=== PATIENT | male | born 1985 | race Caucasian/White ===

== ENCOUNTER 2020-02-18 18:46 | Emergency (ER) | payer OTHER, SELFPAY ==
--- NOTE | 2020-02-18 18:58 | ED.WOUNDLAC ---
HPI - Wound/Laceration General Chief Complaint: Wound/Laceration Stated Complaint: left pointer finger lac Time Seen by Provider: 02/18/20 19:00 Source: patient and RN notes reviewed Mode of arrival: ambulatory Limitations: no limitations History of Present Illness HPI narrative: This is a 34 years old male presents to the office for an evaluation of left index finger at around 3pm with razor blade. He could not get the blood to stops. TD is up to date. Related Data Home Medications Medication Instructions Recorded Confirmed budesonide-formoterol [Symbicort] INHALATION 02/18/20 Allergies Allergy/AdvReac Type Severity Reaction Status Date / Time No Known Allergies Allergy Verified 07/28/17 21:53 Review of Systems Review of Systems: Narrative: CONSTITUTIONAL: Denies feeling ill SKIN:Reports cut to his left index finger MUSCULOSKELETAL: Reports left index finger pain; but able to move. NEUROLOGIC: Denies numbness or tingling sensation PMFSH Past Medical History Medical History Asthma Coma Carbon monoxide poisioning Depression Eczema Nasal polyps Surgical History Surgical History H/O sinus surgery History of arthroscopy of right knee Family History Family History Grandparent Malignant neoplasm of prostate Family history of glaucoma Family history of alcoholism Family history of cardiovascular disease Family history of arthritis Family history of Alzheimer's disease Mother Family history of mental disorder Depression Family history of migraine headaches Family history of rheumatoid arthritis Family history of malignant neoplasm of breast in first degree relative Sibling Family history of mental disorder Depression Father Hypertension, Onset Age: 57 Family history of alcoholism Other Cerebrovascular accident Family history of color blindness Social History Social History Smoking status: Former smoker Alcohol intake: never Gender identity (if verbalized by the patient): Male Comments At time of signature, I agree with nursing past medical, surgical, social and family history. There is no relevant family history pertinent to the presenting complaint. Exam Narrative: Exam Narrative: GENERAL: This is a well-nourished, well-developed patient, in no apparent distress. NEURO: awake, alert, and oriented to person, place and time. There were no obvious focal neurologic abnormalities. Steady gait EXTREMITIES: left volar aspect of distal phalange noted gapping laceration in c-shape; bleeding is active; but controlled with pressure. Cap refill brisk. Radial pulse intact. Naeem Coma Scale Eye Opening: Spontaneous 4 Naeem Coma Scale Motor: Obeys Commands 6 [place] Coma Scale Verbal: Oriented 5 Course Vital Signs Vital signs: Vital Signs Temperature 98.1 F 02/18/20 19:05 Pulse Rate 73 02/18/20 19:05 Respiratory Rate 16 02/18/20 19:05 Blood Pressure 137/73 02/18/20 19:05 Pulse Oximetry 100 02/18/20 19:05 Temperature 98.1 F 02/18/20 19:05 Pulse Rate 73 02/18/20 19:05 Respiratory Rate 16 02/18/20 19:05 Blood Pressure 137/73 02/18/20 19:05 Pulse Oximetry 100 02/18/20 19:05 Procedures Laceration Laceration 1: Date: 02/18/20 Time: 19:08 Site: upper extremity Side (If applicable): left Size (cm): 2 Description: linear and flap Depth: simple, single layer Local Anesthetic: lidocaine 1% Amount of anesthesia used (mL): 6 Pre-repair: wound explored and irrigated ====== Skin Level ====== Skin layer closed with: nylon Size (cm): 5-0 Number of sutures: 9 Technique: simple, interrupted ====== Subcutaneous Layer ===
[2020-02-18 19:05] VITALS: BP 137/73; PULSE 73; RESP 16; TEMP 36.7; O2SAT 100
== END 2020-02-18 19:50 | disposition home or self-care (01) ==
PROVIDERS: Emergency Provider Nurse Practitioner
DX: S61.211A Laceration without foreign body of left index finger without damage to nail, initial encounter (principal); W26.8XXA Contact with other sharp object(s), not elsewhere classified, initial encounter
CPT/HCPCS: 12001; 99212; G0463

== ENCOUNTER 2022-12-25 08:49 | Outpatient (CLI) | payer OTHER, SELFPAY ==
[2022-12-25 20:51] LABS: Kit Draw Collected
== END 2022-12-25 08:50 | disposition home or self-care (01) ==
LOC: ANHGOSHLAB 08:51
PROVIDERS: PCP Family Medicine; Visit Provider Physician Assistant
DX: F41.9 Anxiety disorder, unspecified (principal); F32.9 Major depressive disorder, single episode, unspecified; Z79.899 Other long term (current) drug therapy
CPT/HCPCS: 36415

== ENCOUNTER 2023-04-05 20:44 | Emergency (ER) | payer OTHER, SELFPAY ==
--- NOTE | ~2023-04-05 | XR_ITS ---
Right Knee Technique: AP, lateral, and oblique views were obtained. Clinical History: Injury Findings: No fracture or dislocation is seen. Osseous alignment is anatomic. Joint spaces are preserv ed without degenerative or erosive change. Soft tissues are unremarkable. No joint effusion is seen. Impression: Unremarkable right knee radiographs. Reviewed, dictated and finalized at [facility]. Impression: Unremarkable right knee radiographs.
[2023-04-05 20:47] VITALS: BP 116/74; PULSE 89; RESP 14; TEMP 36.6; O2SAT 98
--- NOTE | 2023-04-05 21:21 | ED.LOWEXIN ---
HPI - Extremity Injury (Lower) General Chief Complaint: Extremity Injury, Lower Stated Complaint: twisted my knee Time Seen by Provider: 04/05/23 21:12 Source: patient and RN notes reviewed Mode of arrival: ambulatory Limitations: no limitations History of Present Illness HPI Narrative: This is a 38 year old male with history of right knee surgery who presents for evaluation of right knee pain. Patient states he was walking approximately 1 hour ago. He reports feeling a pop in his right knee and he has right medial knee pain. He states he immediately came to ER . He has taken any medication or tried any treatment. He thinks his right knee seems swollen. He reports having ACL, MCL and PCL repair 5 years ago . He has not had any issues since his surgery. He reports his pain 06/21. Related Data Home Medications Medication Instructions Recorded Confirmed cholecalciferol (vitamin D3) 50 50 mcg PO DAILY 12/29/22 mcg (2,000 unit) capsule Allergies Allergy/AdvReac Type Severity Reaction Status Date / Time No Known Allergies Allergy Verified 10/23/22 15:30 Review of Systems Review of Systems: All systems reviewed & are unremarkable except as noted in HPI and below PMFSH Past Medical History Medical History Asthma Coma Carbon monoxide poisioning Depression Eczema Nasal polyps Surgical History Surgical History H/O sinus surgery History of arthroscopy of right knee Family History Family History Grandparent Malignant neoplasm of prostate Family history of glaucoma Family history of alcoholism Family history of cardiovascular disease Family history of arthritis Family history of Alzheimer's disease Mother Family history of mental disorder Depression Family history of migraine headaches Family history of rheumatoid arthritis Family history of malignant neoplasm of breast in first degree relative Sibling Family history of mental disorder Depression Father Hypertension, Onset Age: 57 Family history of alcoholism Other Cerebrovascular accident Family history of color blindness Social History Social History Smoking status: Current some day smoker Tobacco type: cigarettes and cigars Alcohol intake: never Gender identity (if verbalized by the patient): Male Exam Const: General: no acute distress and alert Nutritional Appearance: well nourished Orientation/consciousness: patient oriented x3 HENMT: Head: normal to inspection Eyes: EOM: EOMs intact bilaterally Resp: Effort & Inspection: normal respiratory effort Neuro: General: patient oriented x3, moves all extremities and CN's II-XI intact bilaterally Extrem: Other: FROM of right knee, no erythema, no significant swelling, TTP right anterior medial, pain with medial pressure; no calf tenderness Psych: Mental Status: mental status grossly normal Affect: normal affect Attitude: cooperative Course Reevaluation(s) Reevaluation #1: I reviewed with patient xray was interpreted as negative by radiologist. I offered knee immobilizer. [facility] He was given dose of ibuprofen 800 mg prior to discharge. Date: 04/05/23 Time: 09:20 Vital Signs Vital signs: Vital Signs Temperature 97.9 F 04/05/23 20:47 Pulse Rate 89 04/05/23 20:47 Respiratory Rate 14 04/05/23 20:47 Blood Pressure 116/74 04/05/23 20:47 Pulse Oximetry 98 04/05/23 20:47 Oxygen Delivery Room Air 04/05/23 20:47 Temperature 97.9 F 04/05/23 20:47 Pulse Rate 89 04/05/23 20:47 Respiratory Rate 14 04/05/23 20:47 Blood Pressure 116/74 04/05/23 20:47 Pulse Oximetry 98 04/05/23 20:47 Oxygen Delivery Room Air 04/05/23 20:47
[2023-04-05] MEDS: IBUPROFEN 400 MG TABLET 800 MG PO (21:26)
== END 2023-04-05 21:30 | disposition home or self-care (01) ==
PROVIDERS: Emergency Provider General Practice; PCP Family Medicine
DX: S86.911A Strain of unspecified muscle(s) and tendon(s) at lower leg level, right leg, initial encounter (principal); T14.90XA Injury, unspecified, initial encounter; F17.210 Nicotine dependence, cigarettes, uncomplicated
CPT/HCPCS: 73562; 99283; A9270

== ENCOUNTER 2025-06-09 08:15 | Outpatient (CLI) | payer OTHER, SELFPAY ==
--- OUTSIDE RECORDS SUMMARY | 2003-03-02 10:15 | XMS_ITS | Continuity of Care Document ---
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 [address] , [address], [place], [address], [place]. tel:[phone] Family History Family Member Type Diagnosis Age At Onset No Information Payers Payer name Insurance type Covered libertarian ID Authoriza tion(s) No Information Social History Type Description Quantity Date Captured Comments Sex Male Smoking Status No Information Chief Complaint And Reason For Visit No Information Reason For Referral Reason For Referral No Information History Of Present Illness Encounter Date Complaint History Of Prese nt Illness No Information Functional Status Date Functional Assessmen t No Information Instructions Date Instruction Additional Infor mation No Information Assessments Type Assessment Date No Information Patient Care Teams Name Effective Dates (start - stop) Status Members No Information
--- OUTSIDE RECORDS SUMMARY | 2025-06-09 08:21 | XMS_ITS | Patient Health Record ---
Author Organization [facility] Address [address] [facility] [address] [place] [address] Care Team Providers Care Ceramic Tile Installer Name Role Phone Nia Hanson Unavailable [phone] Reason For Referral No Information Plan Of Treatment No Information
--- OUTSIDE RECORDS SUMMARY | 2025-06-09 08:21 | XMS_ITS | Clinical Summary ---
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
--- OUTSIDE RECORDS SUMMARY | 2025-06-09 08:21 | XMS_ITS | Encounter Summary ---
Author Organization [employer] Address 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
[2025-06-09 18:24] LABS: Hematocrit 43.4 % (42.0-52.0); Hemoglobin 13.7 g/dL (14.0-18.0); Immature Granulocyte Percent A 0.5 % (0-0.5); Lymphocytes Absolute Auto 2.03 K/mm3 (0.9-3.2); Mean Corpuscular HGB Conc 31.6 g/dl (32-36); Mean Corpuscular Hemoglobin 30.0 pg (26-34); Mean Corpuscular Volume 95.2 fl (80-100); Nucleated Red Blood Cells Absolute Auto 0.000 K/mm3 (0.0-0.012); Nucleated Red Blood Cells Perc 0.0 % (0.0-0.2); Platelet Count Result 268 k/mm3 (150-375); Red Blood Count 4.56 M/mm3 (4.6-6.20); White Blood Count 6.2 K/mm3 (4.5-10.0)
[2025-06-09 19:16] LABS: Alanine Aminotransferase 46 U/L (6-50); Albumin Level 4.4 g/dL (3.5-5.1); Alkaline Phosphatase 71 U/L (38-126); Anion Gap 10 mmol/L (4-12); Aspartate Amino Transferase 62 U/L (17-59); Bilirubin,Total 0.5 mg/dL (0.2-1.3); Blood Urea Nitrogen 14 mg/dL (9-20); Calcium 9.2 mg/dL (8.4-10.2); Carbon Dioxide 25 mmol/L (22-30); Chloride 103 mmol/L (98-107); Cholesterol 143 mg/dL (0-200); Estimated Glomerular Filt Rate > 60; Glucose 67 mg/dL (65-110); HDL Direct 46 mg/dL; Potassium 4.2 mmol/L (3.4-5.0); Sodium 138 mmol/L (137-145); Total Protein 7.2 g/dL (6.3-8.2); Triglycerides 83 mg/dL (<150)
== END 2025-06-09 08:16 | disposition home or self-care (01) ==
LOC: ANHGOSHLAB 08:16
PROVIDERS: PCP Family Medicine; Visit Provider Family Medicine
DX: Z00.00 Encounter for general adult medical examination without abnormal findings (principal)
CPT/HCPCS: 36415; 80053; 80061; 85025